=== PATIENT | female | born 1985 | race Caucasian/White ===

== ENCOUNTER 2016-06-11 08:00 | Emergency (ER) | payer MEDICAID ==
[~2016-06-11] VITALS: Wt 68.0 kg
[2016-06-11] MEDS ORDERED: SOD CHLORIDE 0.9% 1,000 ML IV STA (09:16)
[2016-06-11] MEDS ORDERED: ONDANSETRON 4 MG INJ IV STA (09:16)
[2016-06-11] MEDS ORDERED: LORAZEPAM 2 MG INJ IV STA (09:16)
[2016-06-11 09:43] LABS: URINE BLOOD (Dip) POC 1+ (NEGATIVE)
--- NOTE | 2016-06-11 09:43 | ERD ---
ER Documentation Chief Complaint Date/Time DATE: 06/11/16 TIME: 09:37 Chief Complaint PALPITATIONS/ANXIETY HPI This is a 31-year-old female presenting to the emergency department for heart palpitations, chest pain and anxiety 8 hours. Patient states symptoms started soon after smoking methamphetamines about 8 hours ago. Patient soon developed heart palpitations, chest pain, shortness of breath and difficulty breathing after smoking methamphetamine. Patient states symptoms have improved over the last hour however is continuing to have symptoms. No other recent drug use. Denies back or abdominal pain. Patient states she has some nausea however no vomiting or diarrhea. Currently denies shortness of breath or difficulty breathing. ROS All systems reviewed and are negative except as per history of present illness. Allergies Allergies: Coded Allergies: No Known Allergy (Unverified , 06/11/16) PMhx/Soc Medical and Surgical Hx: pt denies Medical Hx, pt denies Surgical Hx History of Surgery: No Anesthesia Reaction: No Hx Neurological Disorder: No Hx Respiratory Disorders: No Hx Cardiac Disorders: No Hx Psychiatric Problems: No Hx Miscellaneous Medical Probl: No Hx Alcohol Use: No Hx Substance Use: Yes (Methamphetamine) Hx Tobacco Use: No Smoking Status: Never smoker Physical Exam Vitals Vital Signs Date Time Temp Pulse Resp B/P Pulse Ox O2 Delivery O2 Flow Rate FiO2 06/11/16 11:21 98.0 79 20 102/56 98 Room Air 06/11/16 10:10 72 20 98 Room Air 06/11/16 08:08 98.0 101 18 133/73 99 Physical Exam Const: No acute distress, alert. . Head: Atraumatic Eyes: Normal Conjunctiva ENT: Normal External Ears, Nose and Mouth. No erythema or exudate posterior pharynx. TMs normal bilaterally. Neck: Full range of motion..~ No meningismus. Resp: Clear to auscultation bilaterally No wheezing, rhonchi or crackles Cardio: Regular rate and rhythm, no murmurs Abd: Soft, non tender, non distended. Normal bowel sounds Skin: No petechiae or rashes Back: No midline or flank tenderness Ext: No cyanosis, or edema Neur: Awake and alert Psych: Normal Mood and Affect Result Diagram: 06/11/1692406/11/1625 Results 24 hrs Laboratory Tests Test 06/11/16 09:25 06/11/16 09:45 Activated Partial Thromboplast Time 29.4Sec Anion Gap 21 Basophils # 0.010^3/ul Basophils % 0.4% Blood Morphology Comment Blood Urea Nitrogen 12mg/dl Calcium Level 10.1mg/dl Carbon Dioxide Level 24mmol/L Chloride Level 103mmol/L Creatinine 0.53mg/dl Eosinophils # 0.310^3/ul Eosinophils % 3.3% Glucose Level 121mg/dl Hematocrit 42.2% Hemoglobin 14.7g/dl INR International Normalized Ratio 1.01 Lymphocytes # 1.610^3/ul Lymphocytes % 16.4% Mean Corpuscular Hemoglobin 29.0pg Mean Corpuscular Hemoglobin Concent 34.8g/dl Mean Corpuscular Volume 83.1fl Mean Platelet Volume 8.4fl Monocytes # 0.610^3/ul Monocytes % 6.6% Neutrophils # 7.110^3/ul Neutrophils % 73.3% Nucleated Red Blood Cells # 0.010^3/ul Nucleated Red Blood Cells % 0.0/100WBC Platelet Count 86916^3/UL Potassium Level 4.0mmol/L Prothrombin Time 13.3Sec Prothrombin Time Ratio 1.0 Red Blood Count 5.0810^6/ul Red Cell Distribution Width 12.8% Sodium Level 144mmol/L Troponin I < 0.012ng/ml White Blood Count 9.810^3/ul Bedside Urine Blood 1+ Bedside Urine Glucose (UA) Negative Bedside Urine Ketones (LAB) Negative Bedside Urine Leukocyte Esterase (L Negative Bedside Urine Nitrite (LAB) Negative Bedside Urine Protein (LAB) Negative Bedside Urine pH (LAB) 5.5 Current Medications Medications (Trade) Dose Ordered Sig/[place] Route PRN Reason Start Time Stop Time Status Last Admin Dose Admin Sodium Chloride (NS) 1,000 ml @ 1,000 mls/hr Q1H STAT IV 06/11/16 09:16 06/11/16 10:15 DC 06/11/16 09:29 Ondansetron HCl (Zofran Inj) 4 mg ONCE STAT IV 06/11/16 09:16 06/11/16 09:20 DC 06/11/16 09:29 Lorazepam (Ativan) 1 mg ONCE STAT IV 06/11/16 09:16 06/11/16 09:20 DC 06/11/16 09:30 Procedures/MDM ED COURSE: The patient was stable throughout ED course. I kept the patient and/or family informed of laboratory and diagnostic imaging results throughout the ED course. Zofran and Lorazepam given Laboratory CBC no significant anemia or infection BMP no significant electrolyte imbalance Troponin less than 0.012 PT 13.3 PTT 29.4 INR 1.01 Urine dip shows 1+ blood otherwise negative Imaging Chest x-ray Patient: FADIA CADENA : 1985 Age: 31 Sex: F MR #: [id number] [facility] #: [id number] DOS: 06/11/16 0943 Ordering MD: JOSEPH LIU NP Location: [facility] Room/Bed: PROCEDURE: XR Chest. CLINICAL INDICATION: Chest pain. TECHNIQUE: Single frontal view of the chest was obtained COMPARISON: No. FINDINGS: The soft tissues are normal. The bony elements are normal. The heart, left side aorta, cardiomediastinal silhouette, pulmonary vasculature and hilar structures are normal. The lungs are clear. The costophrenic angles are normal. There is a suboptimal inspiration. IMPRESSION: 1. Normal chest x-ray. EKG: As reviewed by Dr. Aguiar Rate/Rhythm: Normal Sinus Rhythm with heart rate 95 bpm QRS, ST, T-waves: No changes consistent w/ acute ischemia Impression: No evidence of ischemia or arrhythmia MDM: 31-year-old female presents emergency department for heart palpitations, chest pain and anxiety 8 hours after methamphetamine use. Labs are unremarkable. Troponin is negative. EKG shows normal sinus rhythm with heart rate 95 bpm as reviewed by Dr. Aguiar. Chest x-ray reviewed by radiologist is unremarkable. IV access obtained by nursing staff and patient given IV fluid bolus of normal saline. Patient also given Zofran and lorazepam via IV. Patient's symptoms have improved while in the ED. No active vomiting. No fevers or chills. Vital signs are stable. Low suspicion for acute PR or lethal arrhythmia. Patient's diagnosis is palpitations secondary to methamphetamine use. Patient is appropriate for outpatient management. Instructed patient to follow- up with primary care provider in the next 2-3 days for reassessment and further management. Return to ED for any high fever, chest pain, difficulty breathing, shortness breath, wheezing, vomiting, diarrhea, abdominal pain or any new or worsening symptoms. Patient verbalizes understanding. All questions answered at discharge. Departure Diagnosis: Primary Impression: Palpitations Condition: Stable JOSEPH LIU NP Jun 11, 2016 09:43
[2016-06-11 09:50] LABS: BASOPHILS % 0.4 % (0.0-2.0); EOSINOPHILS # 0.3 10^3/ul (0.0-0.5); EOSINOPHILS % 3.3 % (0.0-7.0); HEMATOCRIT 42.2 % (37.0-47.0); HEMOGLOBIN 14.7 g/dl (12.0-16.0); LYMPHOCYTES # 1.6 10^3/ul (0.8-2.9); LYMPHOCYTES % 16.4 % (15.0-51.0); MEAN CORPUSCULAR HGB CONC 34.8 g/dl (32.0-37.0); MEAN CORPUSCULAR VOLUME 83.1 fl (82.0-101.0); MEAN PLATELET VOLUME 8.4 fl (7.4-10.4); MONOCYTE # 0.6 10^3/ul (0.3-0.9); MONOCYTES % 6.6 % (0.0-11.0); NEUTROPHIL # 7.1 10^3/ul (1.6-7.5); NEUTROPHILS % 73.3 % (39.0-77.0); PLATELET COUNT 339 10^3/UL (140-440); RED BLOOD COUNT 5.08 10^6/ul (4.20-5.40); RED CELL DISTRIBUTION WIDTH 12.8 % (11.5-14.5); UNCORRECTED WBC 9.8 10^3/ul (4.8-10.8); WHITE BLOOD COUNT 9.8 10^3/ul (4.8-10.8)
[2016-06-11 09:54] LABS: CONDITION 1
--- NOTE | 2016-06-11 09:56 | RADRPT ---
PROCEDURE: XR Chest. CLINICAL INDICATION: Chest pain. TECHNIQUE: Single frontal view of the chest was obtained COMPARISON: No. FINDINGS: The soft tissues are normal. The bony elements are normal. The heart, left side aorta, cardiomedias tinal silhouette, pulmonary vasculature and hilar structures are normal. The lungs are clear. The co stophrenic angles are normal. There is a suboptimal inspiration. IMPRESSION: 1. Normal chest x-ray. RPTAT:AAJJ Physician Natividad Date Time Electronically viewed and signed by Rylan Salguero Physician on 06/11/2016 09:56 /
[2016-06-11 10:04] LABS: CHLORIDE 103 mmol/L (97-110); SODIUM 144 mmol/L (135-144)
[2016-06-11 10:05] LABS: INR 1.01; PROTIME 13.3 Sec (12.2-14.2)
[2016-06-11 10:06] LABS: PARTIAL THROMBOPLASTIN TIME 29.4 Sec (25.0-35.0)
[2016-06-11 10:07] LABS: ANION GAP 21 (8-16); BLOOD UREA NITROGEN 12 mg/dl (7-20); CALCIUM 10.1 mg/dl (8.4-10.2); CARBON DIOXIDE 24 mmol/L (21-31); CREATININE 0.53 mg/dl (0.44-1.00); GLUCOSE 121 mg/dl (70-220)
[2016-06-11 10:30] LABS: TROPONIN-I < 0.012 ng/ml (0.00-0.12)
[2016-06-11 11:21] VITALS: BP 102/56; PULSE 79; RESP 20; TEMP 98
== END 2016-06-11 11:39 | disposition home or self-care (01) ==
LOC: FTE 08:00
DX: R00.2 Palpitations (principal); R11.0 Nausea
CPT/HCPCS: 36415; 71010; 80048; 81003; 84484; 85025; 85610; 85730; 93005; 96361; 96374; 96375; J2060; J2405; J7030; Z7502

== ENCOUNTER 2016-06-15 23:12 | Emergency (ER) | payer SELFPAY ==
[~2016-06-15] VITALS: Ht 152.4 cm; Wt 71.3 kg
[2016-06-15 23:25] VITALS: Ht 152.4 cm; Wt 71.3 kg
== END 2016-06-16 00:30 | disposition left against medical advice (07) ==
LOC: FTE 23:12
DX: Z53.21 Procedure and treatment not carried out due to patient leaving prior to being seen by health care provider (principal)